=== PATIENT | male | born 1945 | race Caucasian/White ===

== ENCOUNTER → 2024-04-10 | Outpatient (CLI) | payer OTHER | END | disposition home or self-care (01) | LOC: SHCH 11:04 | PROVIDERS: ATTEND Internal Medicine Cardiovascular Disease | DX: I35.8 Other nonrheumatic aortic valve disorders (principal); R60.9 Edema, unspecified | CPT/HCPCS: 93306 ==

== ENCOUNTER → 2024-05-18 | Outpatient (CLI) | payer OTHER ==
[~2024-05-18] MED LIST: APIX5TAB PO; DOCU100C33 PO; FURO20TA4 PO; LOSA100T59 PO; MONT-39 PO; NIFE-40 PO; OMEG100033 PO; OMEP40CA21 PO; SIMV-43 PO; VITA1CAP85 PO
== END | disposition home or self-care (01) ==
LOC: SHCH 13:50
PROVIDERS: ATTEND Internal Medicine Cardiovascular Disease
DX: I82.511 Chronic embolism and thrombosis of right femoral vein (principal)
CPT/HCPCS: 93970